=== PATIENT | female | born 1945 | race Caucasian/White ===

== ENCOUNTER → 2025-09-30 15:27 | Outpatient (BNVA) | payer MEDICARE, SELFPAY | PROVIDERS: Visit Provider Family Medicine | DX: E83.52 Hypercalcemia (principal); R77.1 Abnormality of globulin; N17.9 Acute kidney failure, unspecified; E03.9 Hypothyroidism, unspecified; M79.89 Other specified soft tissue disorders | CPT/HCPCS: 80053; 80061; 81003; 82043; 82306; 82310; 82533; 82607; 82746; 83735; 83970; 84100; 84439; 84443; 84481; 85025 ==

== ENCOUNTER → 2025-10-01 16:31 | Outpatient (BNVA) | payer MEDICARE, SELFPAY | PROVIDERS: Visit Provider Family Medicine | DX: M79.89 Other specified soft tissue disorders (principal); D64.9 Anemia, unspecified | CPT/HCPCS: 80503 ==